=== PATIENT | male | born 1955 | race Caucasian/White ===

== ENCOUNTER 2017-03-12 09:10 | Emergency (ER) | payer BC ==
[2017-03-12 10:13] LABS: BASOPHIL % 0.5 % (0-2); PLATELET COUNT 282 x10^3mcL (130-400); RED CELL DISTRIBUTION WIDTH 12.8 % (11.5-14.5)
[2017-03-12 10:22] LABS: CALCIUM 10.1 mg/dL (8.5-10.1); CARBON DIOXIDE 27.2 mmol/L (21-32); CHLORIDE SERUM 96 mmol/L (98-107); CREATININE SERUM 0.9 mg/dL (0.7-1.3); GFR1 > 60 mL/min; GLUCOSE SERUM 95 mg/dL (74-106); POTASSIUM SERUM 3.5 mmol/L (3.5-5.1); SODIUM SERUM 136 mmol/L (136-145)
[2017-03-12 10:27] LABS: ALBUMIN 3.9 g/dL (3.4-5.0); ALKALINE PHOSPHATASE 76 U/L (46-116); ALT/SGPT 36 U/L (16-63); AST/SGOT 39 U/L (15-37); BILIRUBIN TOTAL 0.68 mg/dL (0.20-1.00); CHOLESTEROL 161 mg/dL (<200); HDL CHOLESTEROL 53 mg/dL (40-60)
[2017-03-12 10:29] LABS: TOTAL PROTEIN, SERUM 8.7 g/dL (6.4-8.2)
[2017-03-12 10:45] LABS: UA SPECIFIC GRAVITY >=1.030 (1.005-1.035); microscopic required? YES; urine erythrocyte TRACE (NEGATIVE)
[2017-03-12 12:18] VITALS: BP 107/67
== END 2017-03-12 12:16 | disposition home or self-care (01) ==
LOC: ED 09:10
PROVIDERS: Emergency Medicine
DX: S20.219A Contusion of unspecified front wall of thorax, initial encounter (principal); S50.312A Abrasion of left elbow, initial encounter; S09.90XA Unspecified injury of head, initial encounter; L03.115 Cellulitis of right lower limb; I73.9 Peripheral vascular disease, unspecified; W06.XXXA Fall from bed, initial encounter; Y93.89 Activity, other specified; Y92.89 Other specified places as the place of occurrence of the external cause; Y99.8 Other external cause status
CPT/HCPCS: 36415; 83880; 90715

== ENCOUNTER 2017-03-15 19:43 | Inpatient (IN) | payer BC ==
[~2017-03-15] VITALS: Ht 177.8 cm; Wt 66.9 kg
[2017-03-15 21:32] LABS: BASOPHIL % 0.3 % (0-2); PLATELET COUNT 286 x10^3mcL (130-400); RED CELL DISTRIBUTION WIDTH 12.8 % (11.5-14.5)
[2017-03-15 21:38] LABS: CALCIUM 9.6 mg/dL (8.5-10.1); CARBON DIOXIDE 29.7 mmol/L (21-32); CREATININE SERUM 1.3 mg/dL (0.7-1.3); POTASSIUM SERUM 3.4 mmol/L (3.5-5.1)
[2017-03-15 21:43] LABS: BILIRUBIN TOTAL 0.37 mg/dL (0.20-1.00); TOTAL PROTEIN, SERUM 7.4 g/dL (6.4-8.2)
[2017-03-15 21:47] LABS: ALBUMIN 3.3 g/dL (3.4-5.0)
[2017-03-15] MEDS ORDERED: CYCLOBENZAPRINE10 MG PO (21:53)
[2017-03-15] MEDS ORDERED: LOVASTATIN20 MG PO (21:53)
[2017-03-15] MEDS ORDERED: ZESTRIL20 MG PO (21:53)
[2017-03-15] MEDS ORDERED: CILOSTAZOL100 M1 PO (21:53)
[2017-03-15] MEDS ORDERED: HYDROCHLOROTHIA25 MG PO (21:54)
[2017-03-15 22:10] LABS: CK-MB 4.2 ng/mL (0-3.6)
[2017-03-16] VITALS (7 sets, daily range): BP systolic 80–139; BP diastolic 43–105
[2017-03-16 01:52] LABS: CHOLESTEROL/HDL RATIO 3.3; MAGNESIUM 2.1 mg/dL (1.8-2.4); PHOSPHOROUS 4.1 mg/dL (2.5-4.9)
[2017-03-16 01:57] LABS: microscopic required? NO
[2017-03-16 02:00] LABS: FREE T4 1.62 ng/dL (0.76-1.46); FREE THYROXINE INDEX 2.8 ug/dL (1.4-4.5); T4(THYROXINE) 7.7 ug/dL (4.7-13.3)
[2017-03-16 02:40] LABS: urine erythrocyte NEGATIVE (NEGATIVE)
[2017-03-16 07:00] LABS: CALCIUM 8.2 mg/dL (8.5-10.1); CARBON DIOXIDE 26.3 mmol/L (21-32); CHLORIDE SERUM 105 mmol/L (98-107); GFR1 > 60 mL/min; GLUCOSE SERUM 100 mg/dL (74-106); POTASSIUM SERUM 3.9 mmol/L (3.5-5.1); SODIUM SERUM 140 mmol/L (136-145)
[2017-03-16 07:03] LABS: BASOPHIL % 0.5 % (0-2); PLATELET COUNT 218 x10^3mcL (130-400); RED CELL DISTRIBUTION WIDTH 13.3 % (11.5-14.5)
[2017-03-17 05:44] VITALS: BP 127/67
[2017-03-17 07:30] LABS: BASOPHIL % 0.3 % (0-2); PLATELET COUNT 221 x10^3mcL (130-400); RED CELL DISTRIBUTION WIDTH 12.6 % (11.5-14.5)
[2017-03-17 07:40] LABS: CALCIUM 8.6 mg/dL (8.5-10.1); CARBON DIOXIDE 24.8 mmol/L (21-32); CHLORIDE SERUM 103 mmol/L (98-107); CREATININE SERUM 0.9 mg/dL (0.7-1.3); GFR1 > 60 mL/min; GLUCOSE SERUM 114 mg/dL (74-106); POTASSIUM SERUM 3.4 mmol/L (3.5-5.1); SODIUM SERUM 138 mmol/L (136-145)
[2017-03-17 10:06] VITALS: BP 121/74
[2017-03-17 14:00] VITALS: BP 122/73
[2017-03-17 17:30] VITALS: BP 123/60
[2017-03-17 19:30] VITALS: BP 95/62
[2017-03-17 20:42] LABS: AMPHETAMINE QUAL UR NONE DETECTED (NEG <=1000)
[2017-03-18 05:20] VITALS: BP 102/67
[2017-03-18 06:03] LABS: BASOPHIL % 0.4 % (0-2); PLATELET COUNT 210 x10^3mcL (130-400); RED CELL DISTRIBUTION WIDTH 12.9 % (11.5-14.5)
[2017-03-18 06:09] VITALS: BP 102/67
[2017-03-18 06:22] LABS: CALCIUM 8.6 mg/dL (8.5-10.1); CARBON DIOXIDE 25.6 mmol/L (21-32); CHLORIDE SERUM 106 mmol/L (98-107); CREATININE SERUM 0.9 mg/dL (0.7-1.3); GFR1 > 60 mL/min; GLUCOSE SERUM 111 mg/dL (74-106); POTASSIUM SERUM 3.8 mmol/L (3.5-5.1); SODIUM SERUM 138 mmol/L (136-145)
[2017-03-18 09:36] VITALS: BP 127/84
[2017-03-18] MEDS ORDERED: FER300 PO (15:09)
[2017-03-18] MEDS ORDERED: LEVAQUIN750 MG PO (15:15)
[2017-03-18] MEDS ORDERED: LAC PO (15:15)
[2017-03-18] MEDS ORDERED: HALOPERIDOL5 MG PO (15:16)
[2017-03-18 17:20] VITALS: BP 127/84
== END 2017-03-18 18:01 | disposition home or self-care (01) | DRG 604 ==
LOC: ED 19:43 → DU 23:12
PROVIDERS: Emergency Medicine; ADMIT Family Medicine
DX: S91.104S Unspecified open wound of right lesser toe(s) without damage to nail, sequela (principal); N17.0 Acute kidney failure with tubular necrosis; G93.41 Metabolic encephalopathy; I96 Gangrene, not elsewhere classified; E44.1 Mild protein-calorie malnutrition; E87.1 Hypo-osmolality and hyponatremia; B96.5 Pseudomonas (aeruginosa) (mallei) (pseudomallei) as the cause of diseases classified elsewhere; I70.299 Other atherosclerosis of native arteries of extremities, unspecified extremity; F17.218 Nicotine dependence, cigarettes, with other nicotine-induced disorders; E86.0 Dehydration; E87.6 Hypokalemia; M51.16 Intervertebral disc disorders with radiculopathy, lumbar region; G89.29 Other chronic pain; W27.8XXS Contact with other nonpowered hand tool, sequela; D64.9 Anemia, unspecified
CPT/HCPCS: 82962; 83880; 84439; J1200; J1630; J1885; J2543; J3490; J7030; J7040; J7042; Q0092; Q9967